=== PATIENT | male | born 1975 | race Caucasian/White ===

== ENCOUNTER 2021-11-20 07:27 | Observation (INO) ==
[2021-11-20] MEDS ORDERED: Famotidine 20 MG/2 ML VIAL IVP ONE (07:59)
[2021-11-20] MEDS ORDERED: Acetaminophen IV 1,000 MG/100 ML BAG IVPB ONE (07:59)
[2021-11-20] MEDS ORDERED: Albuterol 2.5 MG/3 ML NEBULIZER IH ONE (07:59)
[2021-11-20] MEDS ORDERED: *HR* HYDROmorphone PF 0.5 MG/0.5 ML SYRINGE IVP PRN (08:00)
[2021-11-20] MEDS ORDERED: *HR* OxyCODONE Immed Rel 5 MG TABLET PO PRN (08:00)
[2021-11-20] MEDS ORDERED: Ondansetron 4 MG/2 ML VIAL IVP PRN ×2 (08:00→15:02)
[2021-11-20] MEDS ORDERED: *HR* FentaNYL (PF) 100 MCG/2 ML VIAL IVP PRN (08:00)
[2021-11-20] MEDS ORDERED: Celecoxib 200 MG CAPSULE PO ONE (08:15)
[2021-11-20] MEDS ORDERED: Famotidine 20 MG TABLET PO ONE (08:30)
[2021-11-20] MEDS ORDERED: CeFAZolin Syr 3,000MG/30 ML 3,000 MG/30 ML SYRINGE IVPB ONE (08:36)
[2021-11-20] MEDS ORDERED: Ringers Solution, Lactated 1,000 ML IVC SCH ×2 (08:45→15:02)
[2021-11-20] MEDS ORDERED: Ondansetron 4 MG/2 ML VIAL ONE (09:43)
[2021-11-20] MEDS ORDERED: Lidocaine -MPF 2% 5 ML VIAL ONE (09:43)
[2021-11-20] MEDS ORDERED: Tranexamic Acid 1,000 MG/10 ML VIAL ONE ×2 (09:44→11:05)
[2021-11-20] MEDS ORDERED: *HR* FentaNYL (PF) 100 MCG/2 ML VIAL ONE ×2 (10:10→12:09)
[2021-11-20] MEDS ORDERED: *HR* Midazolam HCl 2 MG/2 ML VIAL ONE (10:10)
[2021-11-20] MEDS ORDERED: Vancomycin 1,000 MG VIAL ONE (10:23)
[2021-11-20] MEDS ORDERED: Povidone-Iodine 45 ML, Sodium Chloride IRRigation 1,000 ML IR ONE (10:40)
[2021-11-20] MEDS ORDERED: TOTAL JOINT MIXTURE (100ML) INTRAART ONE (10:40)
[2021-11-20] MEDS ORDERED: Dexmedetomidine HCl 400 MCG/100 ML MLS IVC ONE (10:53)
[2021-11-20] MEDS ORDERED: Ketamine HCL *QUVA* 50mg (1mL) SYRINGE ONE (11:05)
[2021-11-20] MEDS ORDERED: Gentamicin 450 MG in 0.9 % Sodium Chloride 100 ML IVPB ONE (11:14)
[2021-11-20] MEDS ORDERED: Ketamine *HR* 500 MG/10 ML MDV ONE (12:18)
[2021-11-20] MEDS ORDERED: Naloxone 0.4 MG/ML INJ IVP PRN (15:02)
[2021-11-20] MEDS ORDERED: *HR* Promethazine 25 MG/ML VIAL IM PRN (15:02)
[2021-11-20] MEDS: ceFAZolin 3,000 MG in 0.9 % Sodium Chloride 100 ML IVPB SCH ×2 (15:34→16:57)
[2021-11-20] MEDS: Ascorbic Acid 500 MG TABLET PO SCH (15:34)
[2021-11-20] MEDS ORDERED: CeFAZolin Syr 3,000MG/30 ML 3,000 MG/30 ML SYRINGE IVPB SCH (16:00)
[2021-11-20] MEDS: Ketorolac 30 MG/ML VIAL IVP SCH (16:56)
[2021-11-20] MEDS: Silver Sulfadiazine 50 GM TUBE TP SCH (19:46)
[2021-11-20] MEDS: Pregabalin 75 MG CAPSULE PO SCH (19:49)
[2021-11-20] MEDS: *HR* OxyCODONE Immed Rel 5 MG TABLET PO PRN (19:49)
[2021-11-20] MEDS ORDERED: Sennosides 8.6 MG TABLET PO PRN (21:00)
[2021-11-20] MEDS ORDERED: MOM Conc 10 ML UD.LIQ PO PRN (21:00)
[2021-11-21] MEDS: Ketorolac 30 MG/ML VIAL IVP SCH ×5 (00:04→23:35)
[2021-11-21] MEDS: ceFAZolin 3,000 MG in 0.9 % Sodium Chloride 100 ML IVPB SCH (00:04)
[2021-11-21 02:19] LABS: Basophils % 0.2 %; Hematocrit 34.2 % (37.5-50.1); Hemoglobin 11.1 g/dL (12.9-16.9); Immature Granulocytes % 0.4 % (0-4); Lymphocytes # 0.8 K/mcL (0.6-4.6); Lymphocytes % 7.9 %; Mean Corpuscular HGB Conc 32.5 g/dL (31.6-35.5); Mean Corpuscular Hemoglobin 26.6 pg (28.0-33.3); Mean Platelet Volume 10.3 fL (9.4-12.4); Monocytes % 9.4 %; Neutrophils # 8.3 K/mcL (1.6-8.9); Platelet Count 257 K/mcL (140-400); Red Blood Count 4.17 M/mcL (4.19-5.50); Red Cell Distribution Width 13.4 % (11.5-14.5); Segmented Neutrophils % 82.1 %; White Blood Count 10.2 K/mcL (4.3-11.1)
[2021-11-21 02:45] LABS: Calcium 8.8 mg/dL (8.6-10.3); Potassium 4.4 mEq/L (3.5-5.1)
[2021-11-21] MEDS: *HR* Rivaroxaban 10 MG TABLET PO SCH (06:07)
[2021-11-21] MEDS: Pregabalin 75 MG CAPSULE PO SCH ×2 (09:50→21:04)
[2021-11-21] MEDS: Ascorbic Acid 500 MG TABLET PO SCH ×2 (09:50→16:20)
[2021-11-21] MEDS: *HR* OxyCODONE Immed Rel 5 MG TABLET PO PRN ×4 (09:50→22:05)
[2021-11-21] MEDS: Multivit/Ca/Min/Fe/FA 1 TAB TABLET PO SCH (09:50)
[2021-11-21] MEDS: Furosemide 40 MG TABLET PO SCH (09:50)
[2021-11-21] MEDS: Silver Sulfadiazine 50 GM TUBE TP SCH ×2 (09:56→21:37)
[2021-11-22] MEDS: *HR* OxyCODONE Immed Rel 5 MG TABLET PO PRN ×3 (03:38→15:52)
[2021-11-22] MEDS: *HR* Rivaroxaban 10 MG TABLET PO SCH (05:00)
[2021-11-22] MEDS: Ketorolac 30 MG/ML VIAL IVP SCH ×3 (05:00→18:34)
[2021-11-22 05:04] LABS: Basophils # 0.1 K/mcL (0.0-0.2); Basophils % 0.8 %; Eosinophils # 0.2 K/mcL (0.0-0.6); Hematocrit 31.5 % (37.5-50.1); Immature Granulocytes % 0.3 % (0-4); Lymphocytes # 2.2 K/mcL (0.6-4.6); Lymphocytes % 29.4 %; Mean Corpuscular HGB Conc 31.7 g/dL (31.6-35.5); Mean Corpuscular Hemoglobin 26.4 pg (28.0-33.3); Mean Corpuscular Volume 83.1 fL (83.0-100.0); Mean Platelet Volume 10.4 fL (9.4-12.4); Monocytes # 0.7 K/mcL (0.0-1.3); Monocytes % 9.7 %; Neutrophils # 4.3 K/mcL (1.6-8.9); Platelet Count 239 K/mcL (140-400); Red Blood Count 3.79 M/mcL (4.19-5.50); Segmented Neutrophils % 57.8 %; White Blood Count 7.5 K/mcL (4.3-11.1)
[2021-11-22 05:08] LABS: BUN/Creatinine Ratio 19 (6-26); Blood Urea Nitrogen 14 mg/dL (6-20); Calcium 8.1 mg/dL (8.6-10.3); Carbon Dioxide 27 mEq/L (23-29); Chloride 104 mEq/L (98-107); Glucose 84 mg/dL (70-105); Osmolality,Calculated 284 (280-300); Potassium 3.8 mEq/L (3.5-5.1); Sodium 137 mEq/L (136-145)
[2021-11-22 07:33] VITALS: O2SAT 93
[2021-11-22] MEDS: Ascorbic Acid 500 MG TABLET PO SCH ×2 (09:11→15:52)
[2021-11-22] MEDS: Pregabalin 75 MG CAPSULE PO SCH (09:11)
[2021-11-22] MEDS: Furosemide 40 MG TABLET PO SCH (09:11)
[2021-11-22] MEDS: Multivit/Ca/Min/Fe/FA 1 TAB TABLET PO SCH (09:12)
[2021-11-22] MEDS: Silver Sulfadiazine 50 GM TUBE TP SCH (09:12)
[2021-11-22] MEDS ORDERED: Moderna Covid-19 Vaccine 100MCG/0.5mL IM ONE (12:45)
[2021-11-22 15:26] VITALS: BP 112/56; PULSE 94; TEMP 98.5
[2021-11-22 15:42] LABS: Adenovirus Not Detected (Not Detect); Bordetella Pertussis Not Detected (Not Detect); Chlamydophila pneumoniae Not Detected (Not Detect); Coronavirus 229E Not Detected (Not Detect); Coronavirus HKU1 Not Detected (Not Detect); Coronavirus NL63 Not Detected (Not Detect); Coronavirus OC43 Not Detected (Not Detect); Human Metapneumovirus Not Detected (Not Detect); Human Rhinovirus/Enterovirus Not Detected (Not Detect); Influenza A Subtype 2009 H1 Not Detected (Not Detect); Influenza B Not Detected (Not Detect); Mycoplasma pneumoniae Not Detected (Not Detect); Parainfluenza Virus 1 Not Detected (Not Detect); Parainfluenza Virus 2 Not Detected (Not Detect); Parainfluenza Virus 3 Not Detected (Not Detect); Parainfluenza Virus 4 Not Detected (Not Detect); Respiratory Syncytial Virus Not Detected (Not Detect); SARS-CoV-2 Not Detected (Not Detect)
== END 2021-11-22 20:43 ==
LOC: SDCAOSI 07:27 → 4WAOSI 07:27
PROVIDERS: ADMIT Orthopaedic Surgery; ATTEND Orthopaedic Surgery